=== PATIENT | female | born 1985 | race Caucasian/White ===

== ENCOUNTER 2018-02-18 08:53 | Emergency (ER) | payer OTHER ==
[2018-02-18 09:15] VITALS: O2SAT 100
--- NOTE | 2018-02-18 09:39 | ERPHSYRPT ---
- History of Present Illness Time Seen by Provider: 02/18/18 09:27 Source: patient Exam Limitations: no limitations Patient Subjective Stated Complaint: pain across lower back that shoots up the middle of the spine Triage Nursing Assessment: Pt c/o of pain in bilateral lower back/hips that radiates up her spine, rates pain /, reports that this happens occasionally since her kids have been born for the past couple of years, pain with palpation up the spine, vitals wnl, denies numbness or tingling, doesn't appear to be in any distress Physician History: 32-year-old white female arrives with complaint of intermittent sharp shooting pains in her back radiating up her spine which began low in the lumbar region symptoms for 2 years after receiving an epidural while having a . She states that she's had the same pain for the past 2 days. She has not had any other symptoms. Denies any new injury. Past medical history includes anemia. Past surgical history includes . Timing/Duration: other (chronically recurring pain2 years, occurring this time for 2-3 days) Modifying Factors: Improves With: nothing Associated Symptoms: No nausea, No vomiting, No abdominal pain, No shortness of breath, No heartburn, No diaphoresis, No cough, No chest pain, No fever, No headaches, No loss of appetite, No malaise, No rash, No syncope, No seizure, No weakness Allergies/Adverse Reactions: ibuprofen Allergy (Verified 02/18/18 09:15) Home Medications: Ferrous Sulfate [Iron] 325 mg PO DAILY 02/18/18 [History] - Review of Systems Constitutional: No Fever, No Chills Eyes: No Symptoms Ears, Nose, & Throat: No Symptoms Respiratory: No Cough, No Dyspnea Cardiac: No Chest Pain, No Edema, No Syncope Abdominal/Gastrointestinal: No Abdominal Pain, No Nausea, No Vomiting, No Diarrhea Genitourinary Symptoms: No Dysuria Musculoskeletal: Back Pain (Pain and back pain, beginning in lumbar region and hips, radiating up back to head sharp chronic intermittent occurring past 2-3 days) Skin: No Rash Neurological: No Dizziness, No Focal Weakness, No Sensory Changes Psychological: No Symptoms Endocrine: No Symptoms All Other Systems: Reviewed and Negative - Past Medical History Pertinent Past Medical History: No Other Medical History: anemia - Past Surgical History Past Surgical History: Yes Female Surgical History: Section - Social History Smoking Status: Current every day smoker How long have you smoked: 4 months Exposure to second hand smoke: Yes Drug Use: none Patient Lives Alone: No - Female History Hx Now: No (unsure) - Nursing Vital Signs Nursing Vital Signs: Initial Vital Signs Temperature 97.4 F 02/18/18 08:58 Pulse Rate 58 L 02/18/18 08:58 Blood Pressure 139/47 02/18/18 08:58 O2 Sat by Pulse Oximetry 100 02/18/18 08:58 Pain Scale Pain Intensity 7 - Physical Exam General Appearance: no apparent distress, alert Eye Exam: PERRL/EOMI, eyes nml inspection Ears, Nose, Throat Exam: normal ENT inspection, TMs normal, pharynx normal, moist mucous membranes Neck Exam: normal inspection, non-tender, supple, full range of motion Respiratory Exam: normal breath sounds, lungs clear, No respiratory distress Cardiovascular Exam: regular rate/rhythm, normal heart sounds, normal peripheral pulses, capillary refill <2 sec Gastrointestinal/Abdomen Exam: soft, normal bowel sounds, No tenderness, No mass Back Exam: normal inspection, normal range of motion, No CVA tenderness, No vertebral tenderness Extremity Exam: normal inspection, normal range of motion, pelvis stable Neurologic Exam: alert, oriented x 3, cooperative, armature tester II-XII nml as tested, normal mood/affect, nml cerebellar function, nml station & gait, sensation nml, No motor deficits Skin Exam: normal color, warm, dry, No rash SpO2 Interpretation: normal (100%) SpO2: 100 Oxygen Delivery: Room Air - Course Nursing assessment & vital signs reviewed: Yes Ordered Tests: Active Orders 24 hr Category Date Time Status HCG,QUALITATIVE URINE Stat Lab 02/18/18 10:05 Completed UA W/RFX UR CULTURE Stat Lab 02/18/18 10:05 Completed Lab/Rad Data: Laboratory Results 02/18/18 02/18/18 Range/Units 10:05 10:05 Urine Color YELLOW (YELLOW) Urine Appearance CLEAR (CLEAR) Urine pH 5.0 (5-6) Ur Specific [place] 1.032 (1.005-1.025) Urine Protein 30 (Negative) Urine Ketones NEGATIVE (NEGATIVE) Urine Blood NEGATIVE (0-5) Ian/ul Urine Nitrite NEGATIVE (NEGATIVE) Urine Bilirubin NEGATIVE (NEGATIVE) Urine Urobilinogen 2 (0-1) mg/dL Ur Leukocyte Esterase NEGATIVE (NEGATIVE) Urine WBC (Auto) 3-5 (0-5) /HPF Urine RBC (Auto) NONE (0-2) /HPF U Epithel Cells (Auto) RARE (FEW) /HPF Urine Bacteria (Auto) NONE (NEGATIVE) /HPF Urine Mucus (Auto) MANY (NEGATIVE) /HPF Urine Culture Reflexed NO (NO) Urine Glucose NEGATIVE (NEGATIVE) mg/dL Urine HCG, Qual NEGATIVE (Negative) - Progress Progress: improved Progress Note: 02/18/18 09:37 32-year-old white female with history of anemia. Arrives with complaint of sharp shooting pains which began in lumbar region and radiated up her spine to her head off-and-on for 2 years after receiving an epidural. Patient states that she's been having similar pains for the Past 2-3 days. On physical examination patient does not appear to be in acute distress she is sitting up on the cot she is able to keep her hips flexed to 90 and extend her knees without any problems she has no point tenderness on my examination. Sensation intact to all extremities full range of motion to all extremities. Will go ahead and check urine hCG and urine test. We will consider placing patient on Flexeril. Patient states she is allergic to ibuprofen so will consider have a patient taking Tylenol for her pain. This appears to be a chronic pain with no new injury. Patient does state that her family physician is Dr. Espinoza but she has not seen him for some time. 02/18/18 10:41 Patient's urinalysis essentially normal hCG is negative. Patient's sleeping when I reenter the room arouses easily. Will place patient on Flexeril 10 mg orally 3 times a day for 5 days. Patient to take Tylenol as well for pain. Patient will need follow-up with her family doctor if pain no better in a couple of days. This does appear to be a chronic pain with exacerbation. - Departure Time of Disposition: 10:42 Departure Disposition: Home Clinical Impression: Back pain Qualifiers: Back pain location: low back pain Chronicity: unspecified Back pain laterality : midline Sciatica presence: without sciatica Qualified Code(s): M54.5 - Low back pain Condition: Fair Critical Care Time: No Referrals: SAL ESPINOZA MD [Primary Care Provider] - Instructions: Low Back Pain (DC) Additional Instructions: Return home. Flexeril as prescribed. Tylenol every 4 hours as needed for pain as well. Follow-up with your family doctor. Return for acute distress or for severe symptoms. Prescriptions: Cyclobenzaprine HCl [Flexeril] 10 mg PO TID #15 tablet
[2018-02-18 10:37] LABS: Bilirubin NEGATIVE (NEGATIVE); Blood NEGATIVE Ery/ul (0-5); Glucose NEGATIVE (NEGATIVE); Ketones NEGATIVE (NEGATIVE); Leukocyte Esterase NEGATIVE (NEGATIVE); Nitrite NEGATIVE (NEGATIVE); Protein,Urine Dip 30 (Negative); Specific Gravity 1.032 (1.005-1.025); Urobilinogen 2 mg/dL (0-1)
[2018-02-18 10:38] LABS: Appearance CLEAR (CLEAR)
[2018-02-18 11:20] VITALS: BP 114/69; PULSE 51
== END 2018-02-18 11:19 | disposition home or self-care (01) ==
LOC: ED 08:53
DX: M54.5 Low back pain (principal)
CPT/HCPCS: 81001; 84703; 99283

== ENCOUNTER 2023-12-24 18:44 | Observation (INO) | payer OTHER ==
--- NOTE | 2023-12-24 19:25 | ERPHSYRPT ---
- History of Present Illness Time Seen by Provider: 12/24/23 19:10 Source: patient, family Exam Limitations: no limitations Patient Subjective Stated Complaint: Abnormal labs from today. Hgb critical low around 5. Triage Nursing Assessment: Patient ambulated back to ER; refused a W/C. No SOB. She is pale. ARTEMIO THOMAS. Physician History: This is an obese 38-year-old white female patient of Dr. Sheffield who arrives by private vehicle escorted by her . Patient was told to return to the emergency department for further evaluation and management of a critical hemoglobin level of 5.7 that was drawn approximately 4 hours prior to arrival. Patient states that she does not have insurance and therefore has not been foll owed by outpatient primary care provider. Today, she was seen by Dr. Garcia for Dr. Sheffield because of worsening shortness of breath and weakness over the last few days. She has not noticed any bright red blood per rectum, dark tarry stools, hematuria, hematemesis or vaginal bleeding. Patient states that she has a history of chronic anemia but does not see curam developer for it. Patient states that she was transfused with packed red blood cells approximately 2 years ago. Patient's last menstrual period was 2 weeks ago and it was normal for her. Patient is a daily smoker of cigarettes. She does state that she had a couple episodes of substernal central nonradiating chest pain in the last few days as well. Timing/Duration: today, worse Severity: moderate Associated Symptoms: shortness of breath, weakness Allergies/Adverse Reactions: ibuprofen Allergy (Verified 12/24/23 18:57) Latex, Natural Rubber Allergy (Verified 12/24/23 18:57) Home Medications: No Reportable Medications [No Reported Medications] 12/24/23 [History] Hx Tetanus, Diphtheria Vaccination/Date Given: Yes Immunizations Up to Date: Yes Travel Risk - International Travel Have you traveled outside of the country in past 3 weeks: No - Emerging Infectious Disease Are you exhibiting symptoms associated with any current EIDs: No - Review of Systems Constitutional: Weakness Eyes: No Symptoms Ears, Nose, & Throat: No Symptoms Respiratory: Dyspnea Cardiac: Chest Pain (Intermittent in the last few days, none now) Abdominal/Gastrointestinal: No Symptoms Genitourinary Symptoms: No Symptoms Musculoskeletal: No Symptoms Skin: No Symptoms Neurological: No Symptoms Psychological: No Symptoms Endocrine: No Symptoms Hematologic/Lymphatic: No Symptoms Immunological/Allergic: No Symptoms All Other Systems: Reviewed and Negative - Past Medical History Pertinent Past Medical History: Yes Other Medical History: anemia - Past Surgical History Past Surgical History: Yes Female Surgical History: Section - Female History Hx Last Menstrual Period: 2 weeks ago Hx Now: No - Social History Smoking Status: Current every day smoker How long have you smoked: 4 months Exposure to second hand smoke: Yes Drug Use: none Patient Lives Alone: No - Social Determinants of Health Will the patient participate in the screening: Declined to provide - Nursing Vital Signs Nursing Vital Signs: Initial Vital Signs Temperature 98.4 F 12/24/23 18:50 Pulse Rate 74 12/24/23 18:50 Respiratory Rate 15 12/24/23 18:50 Blood Pressure 107/77 12/24/23 18:50 O2 Sat by Pulse Oximetry 100 12/24/23 18:50 Pain Scale Pain Intensity 0 - Physical Exam General Appearance: mild distress, alert, anxiety, obese Eye Exam: pale conjunctivae Ears, Nose, Throat Exam: dry mucous membranes Neck Exam: normal inspection, non-tender, supple, full range of motion Respiratory Exam: normal breath sounds, lungs clear, airway intact, No chest tenderness, No respiratory distress Cardiovascular Exam: regular rate/rhythm, normal heart sounds, normal peripheral pulses Gastrointestinal/Abdomen Exam: soft, normal bowel sounds, No tenderness Pelvic Exam: not done Rectal Exam: not done Back Exam: normal inspection, normal range of motion, No CVA tenderness, No vertebral tenderness Extremity Exam: normal inspection, normal range of motion, pelvis stable Neurologic Exam: alert, oriented x 3, cooperative, care services manager II-XII nml as tested, nml cerebellar function, nml station & gait, sensation nml Skin Exam: pale Lymphatic Exam: No adenopathy SpO2 Interpretation: normal SpO2: 100 O2 Delivery: Room Air - Course Nursing assessment & vital signs reviewed: Yes EKG Interpreted by Me: RATE, Sinus Rhythm, NORMAL AXIS, NORMAL INTERVALS, NORMAL QRS, Other (Computer review doses. Ventricular premature complexes. No acute ischemic changes on today's twelve-lead EKG. QTc is 436) Ordered Tests: Active Orders 24 hr Category Date Time Status Gas Mask Inspector STAT Care 12/24/23 19:41 Active EKG-ER Only STAT Care 12/24/23 19:40 Active IV Insertion STAT Care 12/24/23 19:40 Active Pulse Oximetry (ED) STAT Care 12/24/23 19:40 Active CHEST 1 VIEW (PORTABLE) Stat Exams 12/24/23 19:41 Taken CBC W DIFF Stat Lab 12/24/23 20:05 Completed CMP Stat Lab 12/24/23 20:05 Completed MAGNESIUM Stat Lab 12/24/23 20:05 Completed NT PRO BNPII Stat Lab 12/24/23 20:05 Completed Occult Blood-Fecal Screen (Diagnostic) [OB-FECAL SCREEN Lab 12/24/23 Ordered ] Stat PROTIME WITH INR Stat Lab 12/24/23 20:05 Completed TROPONIN Q4H Lab 12/24/23 20:05 Completed TROPONIN Q4H Lab 12/24/23 23:45 Ordered TROPONIN Q4H Lab 12/25/23 03:45 Ordered Transfer Order Routine Transfer 12/24/23 Ordered Lab/Rad Data: Laboratory Result Diagrams 12/24/23 20:05 12/24/23 20:05 Laboratory Results 12/24/23 12/24/23 12/24/23 Range/Units 20:05 20:05 20:05 WBC (3.98-10.04) x10^3/uL RBC (3.93-5.22) x10^6/uL Hgb (11.2-15.7) g/dL Hct (34.1-44.9) % MCV (79.4-94.8) fL MCH (25.6-32.2) pg MCHC (32.2-35.5) g/dL RDW (11.7-14.4) % Plt Count (182-369) x10^3/uL Gran % (34.0-71.1) % Immature Gran % (Auto) (0.001-0.429) % Nucleat RBC Rel Count (0.00-0.2) % Eos # (Auto) (0.04-0.36) x10^3/uL Immature Gran # (Auto) (0.001-0.031) x10^3u/L Absolute Lymphs (auto) (1.18-3.74) x10^3/uL Absolute Monos (auto) (0.24-0.86) x10^3/uL Absolute Nucleated RBC (0.00-0.012) x10^3u/L Lymphocytes % (19.3-51.7) % Monocytes % (4.7-12.5) % Eosinophils % (0.7-5.8) % Basophils % (0.1-1.2) % Absolute Granulocytes (1.56-6.13) x10^3/uL Basophils # (0.01-0.08) x10^3/uL PT 10.0 (9.4-12.5) SECONDS INR 0.91 (0.8-3.0) Sodium 140 (135-145) mmol/L Potassium 3.7 (3.5-5.1) mmol/L Chloride 104 (98-107) mmol/L Carbon Dioxide 27 (22-30) mmol/L Anion Gap 12.9 (5-15) MEQ/L BUN 14 (7-17) mg/dL Creatinine 0.67 (0.52-1.04) mg/dL Estimated GFR 113.2 ML/MIN Glucose 125 H (74-106) mg/dL Calcium 8.8 (8.4-10.2) mg/dL Magnesium 2.0 (1.6-2.3) mg/dL Total Bilirubin 0.30 (0.2-1.3) mg/dL AST 24 (14-36) U/L ALT 22 (0-35) U/L Alkaline Phosphatase 74 (38-126) U/L Troponin I < 0.012 (0.000-0.033) ng/mL NT-Pro-B Natriuret Pep 81.3 (<300) pg/mL Serum Total Protein 7.1 (6.3-8.2) g/dL Albumin 4.0 (3.5-5.0) g/dL Slides for Path Review 12/24/23 Range/Units 20:05 WBC 6.9 (3.98-10.04) x10^3/uL RBC 3.33 L (3.93-5.22) x10^6/uL Hgb 5.0 L* (11.2-15.7) g/dL Hct 19.2 L (34.1-44.9) % MCV 57.7 L (79.4-94.8) fL MCH 15.0 L (25.6-32.2) pg MCHC 26.0 L (32.2-35.5) g/dL RDW 21.0 H (11.7-14.4) % Plt Count 177 L (182-369) x10^3/uL Gran % 72.3 H (34.0-71.1) % Immature Gran % (Auto) 0.4 (0.001-0.429) % Nucleat RBC Rel Count 0.0 (0.00-0.2) % Eos # (Auto) 0.16 (0.04-0.36) x10^3/uL Immature Gran # (Auto) 0.03 (0.001-0.031) x10^3u/L Absolute Lymphs (auto) 1.25 (1.18-3.74) x10^3/uL Absolute Monos (auto) 0.45 (0.24-0.86) x10^3/uL Absolute Nucleated RBC 0.00 (0.00-0.012) x10^3u/L Lymphocytes % 18.1 L (19.3-51.7) % Monocytes % 6.5 (4.7-12.5) % Eosinophils % 2.3 (0.7-5.8) % Basophils % 0.4 (0.1-1.2) % Absolute Granulocytes 4.98 (1.56-6.13) x10^3/uL Basophils # 0.03 (0.01-0.08) x10^3/uL PT (9.4-12.5) SECONDS INR (0.8-3.0) Sodium (135-145) mmol/L Potassium (3.5-5.1) mmol/L Chloride (98-107) mmol/L Carbon Dioxide (22-30) mmol/L Anion Gap (5-15) MEQ/L BUN (7-17) mg/dL Creatinine (0.52-1.04) mg/dL Estimated GFR ML/MIN Glucose (74-106) mg/dL Calcium (8.4-10.2) mg/dL Magnesium (1.6-2.3) mg/dL Total Bilirubin (0.2-1.3) mg/dL AST (14-36) U/L ALT (0-35) U/L Alkaline Phosphatase (38-126) U/L Troponin I (0.000-0.033) ng/mL NT-Pro-B Natriuret Pep (<300) pg/mL Serum Total Protein (6.3-8.2) g/dL Albumin (3.5-5.0) g/dL Slides for Path Review YES - Progress Progress: unchanged Progress Note: 12/24/23 20:42 My medical decision making and the assignment of high complexity is based on review of the patient's past medical history, review the patient's medication list, review of the patient's drug allergy list, history present illness and physical findings on examination. I also reviewed labs that were drawn approximately 4 hours prior to the patient arriving to our facility. The workup today includes placement of an intravenous line, CBC, CMP, PT/INR, occult fecal stool test, CT scan of the abdomen pelvis without contrast, type and cross for 3 units with stat transfusion. Patient will be placed in observation in the hospital if hospitalist agrees. Differential diagnosis includes but is not limited to symptomatic anemia, acute versus chronic blood loss, chronic hematologic abnormality 12/24/23 21:24 I interpreted the patient's laboratory data results. Patient does have significant anemia with symptoms. Her repeat hemoglobin is 5 and her hematocrit was 19. I spoke with Dr. Hodges, our telehospitalist on-call at this time. I reviewed the patient history, presenting complaint, physical findings on examination and results of our workup. He agrees to place this patient in observation. Discussed with : Other (Dr. Hodges) Counseled pt/family regarding: lab results, diagnosis, need for follow-up, rad results Medical Desision Making - Independent Historian Additional History obtained from: Spouse - Diagnostic Testing Radiological Interpretation: Reviewed by me, Teleradiologist Report - Risk of complications The pt has a high risk of morbidity or mortality based on: Decision regarding hospitilization or escalation of hosp level of care - Departure Departure Disposition: Observation Clinical Impression: Symptomatic anemia Condition: Stable Critical Care Time: Yes Critical Care Time(excluding separately billable procedures): Critical 30-74 mins (45 minutes) Referrals: SAL SHEFFIELD MD [Primary Care Provider] - Follow up/PCP as directed
[2023-12-24 20:17] LABS: Absolute Neutrophil Ct (ANC) 4.98 x10^3/uL (1.56-6.13); BASOPHIL % 0.4 % (0.1-1.2); Basophil (Absolute #) 0.03 x10^3/uL (0.01-0.08); Eosinophil % 2.3 % (0.7-5.8); Eosinophil (Absolute #) 0.16 x10^3/uL (0.04-0.36); Hematocrit 19.2 % (34.1-44.9); IMMATURE GRAN # 0.03 x10^3u/L (0.001-0.031); IMMATURE GRAN % 0.4 % (0.001-0.429); Lymphocyte (Absolute #) 1.25 x10^3/uL (1.18-3.74); Lymphocytes % 18.1 % (19.3-51.7); Mean Cell Volume 57.7 fL (79.4-94.8); Monocyte (Absolute #) 0.45 x10^3/uL (0.24-0.86); Monocytes % 6.5 % (4.7-12.5); Neutrophil % 72.3 % (34.0-71.1); Platelet Count 177 x10^3/uL (182-369); Red Blood Count 3.33 x10^6/uL (3.93-5.22); White Blood Count 6.9 x10^3/uL (3.98-10.04)
[2023-12-24 20:32] LABS: ANION GAP 12.9 MEQ/L (5-15); BILIRUBIN,TOTAL 0.3 mg/dL (0.2-1.3); Calcium 8.8 mg/dL (8.4-10.2); Creatinine 1 0.67 mg/dL (0.52-1.04); EST GLOMERULAR FILTRATION RATE 113.2 ML/MIN; INR 0.91 (0.8-3.0); Potassium 3.7 mmol/L (3.5-5.1); Total Protein 7.1 g/dL (6.3-8.2)
[2023-12-24 20:43] LABS: NT PRO BNPII 81.3 pg/mL (<300); TROPONIN < 0.012 ng/mL (0.000-0.033)
[2023-12-24 21:11] LABS: Slide Review 1 YES
[2023-12-24 21:33] LABS: ABO TYPING A; Antibody Screen NEGATIVE (NEGATIVE); RH TYPING POSITIVE
[2023-12-24 21:35] LABS: CROSS MATCH (PRBC) COMPATIBLE (COMPATIBLE)
[2023-12-24 21:36] LABS: CROSS MATCH (PRBC) COMPATIBLE (COMPATIBLE)
[2023-12-24] MEDS ORDERED: Zofran 4 MG/2 ML VIAL IV PRN (21:42)
[2023-12-24] MEDS ORDERED: TYLENOL 325 MG PO PRN (21:42)
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
[2023-12-24] MEDS: Sodium Chloride 0.9% 1000 ML 1,000 ML IV SCH (23:07)
[2023-12-24 23:23] LABS: CROSS MATCH (PRBC) COMPATIBLE (COMPATIBLE)
[2023-12-24 23:24] LABS: Iron 27 ug/dL (37-170); Iron Saturation 6 % (20-39); TIBC 451 ug/dL (265-462)
[2023-12-24 23:55] LABS: Ferritin 3.38 ng/mL (6.24-137)
--- NOTE | 2023-12-25 05:15 | PCM.NOTE ---
Date and Time: 12/25/23 0508 Subjective Assessment: HPI: Ms. Nice is a 38 year old female, patient of Dr. Sheffield with a pmhx of tobacco abuse and anemia admitted 12/25/23 for further evaluation and management of a critical hemoglobin level of 5.7 that was drawn as an OP and later confirmed hgb of 5.0 in ED. Patient had been experiencing symptoms of weakness and shortness of breath for several days prompting her to her PCP. She denies any bright red blood per rectum, dark tarry stools, hematuria, hematemesis or vaginal bleeding. She does has a history of chronic anemia and has been told it is secondary to heavy menses, but has never been evaluated by a mold carpenter for it. Patient states that she was transfused with packed red blood cells approximately 2 years ago. Patient's last menstrual period was 2 weeks ago and it was heavy. EKG NS no acute ischemic changes. Objective Data Vital Signs: Vital Signs - 24 hr Temp Pulse Resp BP BP Pulse Ox 12/25/23 04:00 97.2 F 58 L 23 123/60 94 L 12/24/23 23:56 72 18 95 12/24/23 22:00 100 12/24/23 21:50 97.7 F 72 18 129/80 100 12/24/23 21:30 100 12/24/23 21:00 74 18 127/68 99 12/24/23 20:31 77 108/48 95 12/24/23 20:01 71 24 107/63 98 12/24/23 19:40 100 12/24/23 19:30 77 16 136/67 12/24/23 19:00 90 20 107/77 98 12/24/23 18:50 98.4 F 74 15 107/77 100 Pain Assessment - Last Documented Pain Intensity 0 Intake and Output: Intake & Output 12/22/23 12/23/23 12/24/23 12/25/23 11:59 11:59 11:59 11:59 Weight 118.5 kg Lab Results: Lab Results-Last 24 Hours 12/24/23 12/24/23 12/24/23 Range/Units 20:05 20:05 20:05 WBC 6.9 (3.98-10.04) x10^3/uL RBC 3.33 L (3.93-5.22) x10^6/uL Hgb 5.0 L* (11.2-15.7) g/dL Hct 19.2 L (34.1-44.9) % MCV 57.7 L (79.4-94.8) fL MCH 15.0 L (25.6-32.2) pg MCHC 26.0 L (32.2-35.5) g/dL RDW 21.0 H (11.7-14.4) % Plt Count 177 L (182-369) x10^3/uL Gran % 72.3 H (34.0-71.1) % Immature Gran % (Auto) 0.4 (0.001-0.429) % Nucleat RBC Rel Count 0.0 (0.00-0.2) % Eos # (Auto) 0.16 (0.04-0.36) x10^3/uL Immature Gran # (Auto) 0.03 (0.001-0.031) x10^3u/L Absolute Lymphs (auto) 1.25 (1.18-3.74) x10^3/uL Absolute Monos (auto) 0.45 (0.24-0.86) x10^3/uL Absolute Nucleated RBC 0.00 (0.00-0.012) x10^3u/L Lymphocytes % 18.1 L (19.3-51.7) % Monocytes % 6.5 (4.7-12.5) % Eosinophils % 2.3 (0.7-5.8) % Basophils % 0.4 (0.1-1.2) % Absolute Granulocytes 4.98 (1.56-6.13) x10^3/uL Basophils # 0.03 (0.01-0.08) x10^3/uL PT 10.0 (9.4-12.5) SECONDS INR 0.91 (0.8-3.0) Sodium 140 (135-145) mmol/L Potassium 3.7 (3.5-5.1) mmol/L Chloride 104 (98-107) mmol/L Carbon Dioxide 27 (22-30) mmol/L Anion Gap 12.9 (5-15) MEQ/L BUN 14 (7-17) mg/dL Creatinine 0.67 (0.52-1.04) mg/dL Estimated GFR 113.2 ML/MIN Glucose 125 H (74-106) mg/dL Calcium 8.8 (8.4-10.2) mg/dL Magnesium 2.0 (1.6-2.3) mg/dL Iron (37-170) ug/dL TIBC (265-462) ug/dL Iron Saturation (20-39) % Ferritin (6.24-137) ng/mL Total Bilirubin 0.30 (0.2-1.3) mg/dL AST 24 (14-36) U/L ALT 22 (0-35) U/L Alkaline Phosphatase 74 (38-126) U/L Lactate Dehydrogenase (120-246) U/L Troponin I (0.000-0.033) ng/mL NT-Pro-B Natriuret Pep (<300) pg/mL Serum Total Protein 7.1 (6.3-8.2) g/dL Albumin 4.0 (3.5-5.0) g/dL Folic Acid (2.76 - >20) ng/mL Slides for Path Review YES ABO Group Rh Factor Antibody Screen (NEGATIVE) Crossmatch (COMPATIBLE) 12/24/23 12/24/23 12/24/23 Range/Units 20:05 20:05 20:05 WBC (3.98-10.04) x10^3/uL RBC (3.93-5.22) x10^6/uL Hgb (11.2-15.7) g/dL Hct (34.1-44.9) % MCV (79.4-94.8) fL MCH (25.6-32.2) pg MCHC (32.2-35.5) g/dL RDW (11.7-14.4) % Plt Count (182-369) x10^3/uL Gran % (34.0-71.1) % Immature Gran % (Auto) (0.001-0.429) % Nucleat RBC Rel Count (0.00-0.2) % Eos # (Auto) (0.04-0.36) x10^3/uL Immature Gran # (Auto) (0.001-0.031) x10^3u/L Absolute Lymphs (auto) (1.18-3.74) x10^3/uL Absolute Monos (auto) (0.24-0.86) x10^3/uL Absolute Nucleated RBC (0.00-0.012) x10^3u/L Lymphocytes % (19.3-51.7) % Monocytes % (4.7-12.5) % Eosinophils % (0.7-5.8) % Basophils % (0.1-1.2) % Absolute Granulocytes (1.56-6.13) x10^3/uL Basophils # (0.01-0.08) x10^3/uL PT (9.4-12.5) SECONDS INR (0.8-3.0) Sodium (135-145) mmol/L Potassium (3.5-5.1) mmol/L Chloride (98-107) mmol/L Carbon Dioxide (22-30) mmol/L Anion Gap (5-15) MEQ/L BUN (7-17) mg/dL Creatinine (0.52-1.04) mg/dL Estimated GFR ML/MIN Glucose (74-106) mg/dL Calcium (8.4-10.2) mg/dL Magnesium (1.6-2.3) mg/dL Iron (37-170) ug/dL TIBC (265-462) ug/dL Iron Saturation (20-39) % Ferritin (6.24-137) ng/mL Total Bilirubin (0.2-1.3) mg/dL AST (14-36) U/L ALT (0-35) U/L Alkaline Phosphatase (38-126) U/L Lactate Dehydrogenase (120-246) U/L Troponin I < 0.012 (0.000-0.033) ng/mL NT-Pro-B Natriuret Pep 81.3 (<300) pg/mL Serum Total Protein (6.3-8.2) g/dL Albumin (3.5-5.0) g/dL Folic Acid (2.76 - >20) ng/mL Slides for Path Review ABO Group A Rh Factor POSITIVE Antibody Screen NEGATIVE (NEGATIVE) Crossmatch COMPATIBLE COMPATIBLE (COMPATIBLE) 12/24/23 12/24/23 12/24/23 Range/Units 20:05 20:05 20:05 WBC (3.98-10.04) x10^3/uL RBC (3.93-5.22) x10^6/uL Hgb (11.2-15.7) g/dL Hct (34.1-44.9) % MCV (79.4-94.8) fL MCH (25.6-32.2) pg MCHC (32.2-35.5) g/dL RDW (11.7-14.4) % Plt Count (182-369) x10^3/uL Gran % (34.0-71.1) % Immature Gran % (Auto) (0.001-0.429) % Nucleat RBC Rel Count (0.00-0.2) % Eos # (Auto) (0.04-0.36) x10^3/uL Immature Gran # (Auto) (0.001-0.031) x10^3u/L Absolute Lymphs (auto) (1.18-3.74) x10^3/uL Absolute Monos (auto) (0.24-0.86) x10^3/uL Absolute Nucleated RBC (0.00-0.012) x10^3u/L Lymphocytes % (19.3-51.7) % Monocytes % (4.7-12.5) % Eosinophils % (0.7-5.8) % Basophils % (0.1-1.2) % Absolute Granulocytes (1.56-6.13) x10^3/uL Basophils # (0.01-0.08) x10^3/uL PT (9.4-12.5) SECONDS INR (0.8-3.0) Sodium (135-145) mmol/L Potassium (3.5-5.1) mmol/L Chloride (98-107) mmol/L Carbon Dioxide (22-30) mmol/L Anion Gap (5-15) MEQ/L BUN (7-17) mg/dL Creatinine (0.52-1.04) mg/dL Estimated GFR ML/MIN Glucose (74-106) mg/dL Calcium (8.4-10.2) mg/dL Magnesium (1.6-2.3) mg/dL Iron (37-170) ug/dL TIBC (265-462) ug/dL Iron Saturation (20-39) % Ferritin 3.38 L (6.24-137) ng/mL Total Bilirubin (0.2-1.3) mg/dL AST (14-36) U/L ALT (0-35) U/L Alkaline Phosphatase (38-126) U/L Lactate Dehydrogenase 134 (120-246) U/L Troponin I (0.000-0.033) ng/mL NT-Pro-B Natriuret Pep (<300) pg/mL Serum Total Protein (6.3-8.2) g/dL Albumin (3.5-5.0) g/dL Folic Acid 5.21 (2.76 - >20) ng/mL Slides for Path Review ABO Group Rh Factor Antibody Screen (NEGATIVE) Crossmatch COMPATIBLE (COMPATIBLE) 12/24/23 Range/Units 20:05 WBC (3.98-10.04) x10^3/uL RBC (3.93-5.22) x10^6/uL Hgb (11.2-15.7) g/dL Hct (34.1-44.9) % MCV (79.4-94.8) fL MCH (25.6-32.2) pg MCHC (32.2-35.5) g/dL RDW (11.7-14.4) % Plt Count (182-369) x10^3/uL Gran % (34.0-71.1) % Immature Gran % (Auto) (0.001-0.429) % Nucleat RBC Rel Count (0.00-0.2) % Eos # (Auto) (0.04-0.36) x10^3/uL Immature Gran # (Auto) (0.001-0.031) x10^3u/L Absolute Lymphs (auto) (1.18-3.74) x10^3/uL Absolute Monos (auto) (0.24-0.86) x10^3/uL Absolute Nucleated RBC (0.00-0.012) x10^3u/L Lymphocytes % (19.3-51.7) % Monocytes % (4.7-12.5) % Eosinophils % (0.7-5.8) % Basophils % (0.1-1.2) % Absolute Granulocytes (1.56-6.13) x10^3/uL Basophils # (0.01-0.08) x10^3/uL PT (9.4-12.5) SECONDS INR (0.8-3.0) Sodium (135-145) mmol/L Potassium (3.5-5.1) mmol/L Chloride (98-107) mmol/L Carbon Dioxide (22-30) mmol/L Anion Gap (5-15) MEQ/L BUN (7-17) mg/dL Creatinine (0.52-1.04) mg/dL Estimated GFR ML/MIN Glucose (74-106) mg/dL Calcium (8.4-10.2) mg/dL Magnesium (1.6-2.3) mg/dL Iron 27 L (37-170) ug/dL TIBC 451 (265-462) ug/dL Iron Saturation 6 L (20-39) % Ferritin (6.24-137) ng/mL Total Bilirubin (0.2-1.3) mg/dL AST (14-36) U/L ALT (0-35) U/L Alkaline Phosphatase (38-126) U/L Lactate Dehydrogenase (120-246) U/L Troponin I (0.000-0.033) ng/mL NT-Pro-B Natriuret Pep (<300) pg/mL Serum Total Protein (6.3-8.2) g/dL Albumin (3.5-5.0) g/dL Folic Acid (2.76 - >20) ng/mL Slides for Path Review ABO Group Rh Factor Antibody Screen (NEGATIVE) Crossmatch (COMPATIBLE) Radiology Exams: Radiology Procedures Category Date Time Status CHEST 1 VIEW (PORTABLE) Stat Exams 12/24/23 19:41 Taken Assessment/Plan (1) Symptomatic anemia Current Visit: Yes Status: Acute Assessment & Plan: -Iron saturation at 6% - will start ferrous sulfate/venofer -Transfuse with LPRBC to mainatain hgb > 7 -stool for occult blood pending -refer to hematology -consider surgery consult -CT abdomen/pelvis - -Hold anticoag/NSAIDS/ASA -Protonix Code(s): D64.9 - ANEMIA, UNSPECIFIED (2) Thrombocytopenia Current Visit: Yes Status: Acute Assessment & Plan: -mild -monitor, replace if less than 10 (3) Smoker Current Visit: Yes Status: Acute Assessment & Plan: -nicotine patch, advise cessation Code(s): F17.200 - NICOTINE DEPENDENCE, UNSPECIFIED, UNCOMPLICATED
[2023-12-25 06:48] LABS: Absolute Neutrophil Ct (ANC) 3.97 x10^3/uL (1.56-6.13); BASOPHIL % 0.7 % (0.1-1.2); Basophil (Absolute #) 0.04 x10^3/uL (0.01-0.08); Eosinophil % 3.5 % (0.7-5.8); Eosinophil (Absolute #) 0.21 x10^3/uL (0.04-0.36); Hematocrit 23.9 % (34.1-44.9); IMMATURE GRAN # 0.02 x10^3u/L (0.001-0.031); IMMATURE GRAN % 0.3 % (0.001-0.429); Lymphocyte (Absolute #) 1.19 x10^3/uL (1.18-3.74); Mean Cell Volume 63.4 fL (79.4-94.8); Mean Corpuscular Hemoglobin 17.5 pg (25.6-32.2); Mean Corpuscular Hgb Concent. 27.6 g/dL (32.2-35.5); Monocyte (Absolute #) 0.52 x10^3/uL (0.24-0.86); Monocytes % 8.7 % (4.7-12.5); Neutrophil % 66.8 % (34.0-71.1); Platelet Count 163 x10^3/uL (182-369); Red Blood Count 3.77 x10^6/uL (3.93-5.22); Red Cell Distribution Width 26.5 % (11.7-14.4)
[2023-12-25 06:57] LABS: Hemoglobin 6.6 g/dL (11.2-15.7)
[2023-12-25 07:03] LABS: ALBUMIN 3.9 g/dL (3.5-5.0); ANION GAP 12.8 MEQ/L (5-15); BILIRUBIN,TOTAL 0.6 mg/dL (0.2-1.3); Calcium 8.7 mg/dL (8.4-10.2); Creatinine 1 0.65 mg/dL (0.52-1.04); EST GLOMERULAR FILTRATION RATE 114.1 ML/MIN; Potassium 4.1 mmol/L (3.5-5.1); Total Protein 6.9 g/dL (6.3-8.2)
[2023-12-25 07:07] VITALS: RESP 16
[2023-12-25 08:40] LABS: Slide Review 1 YES
--- NOTE | 2023-12-25 08:44 | XRAY ---
Indication: Short of breath. Comparison: None Portable chest inflated and clear. Heart borderline enlarged. Bony thorax intact. No acute abnormalities.
[2023-12-25] MEDS ORDERED: Pepcid 20 MG PO SCH (10:00)
--- NOTE | 2023-12-25 10:08 | PCM.DS ---
Discharge Summary Date of Admission: 12/24/23 21:36 Date of Discharge: 12/25/23 Admitting Physician: BRODY MARCELO MD Consults: Consults on Case 12/25/23 07:30 Case Management [facility] Needs Assessment ROUTINE Primary Care Provider: SAL SHEFFIELD AMANDA Allergies Allergies ibuprofen Allergy (Verified 12/24/23 18:57) Latex, Natural Rubber Allergy (Verified 12/24/23 18:57) Hospital Summary - Hospital Course Hospital Course: HPI: Ms. Nice is a 38 year old female, patient of Dr. Sheffield with a pmhx of tobacco abuse and anemia admitted 12/25/23 for further evaluation and management of a critical hemoglobin level of 5.7 that was drawn as an OP and later confirmed hgb of 5.0 in ED. Patient had been experiencing symptoms of weakness and shortness of breath for several days prompting her to her PCP. She denies any bright red blood per rectum, dark tarry stools, hematuria, hematemesis or vaginal bleeding currently. She does has a history of chronic anemia and has been told it is secondary to heavy menses, but has never been evaluated by a livestock farmer for it. Patient states that she was transfused with packed red blood cells approximately 2 years ago. Patient's last menstrual period was 2 weeks ago and it was heavy. She reports she is being evaluated by [facility] for a partial hysterectomy. EKG NS no acute ischemic changes. Patient has received 3 units of LPRBC. She is requesting discharge today. Discussed referral to hematology for evaluation of anemia for which patient is agreeable. Her iron saturation is at 6%. Will start her on ferrous sulfate - patient unable to tolerate pill form - will send in liquid. Patient states she is no longer experiencing sob or weakness. Stable for discharge pending 1 hr CBC s/p transfusion. Patient advised to follow up with pcp this week for repeat CBC. Discharge Note New Diagnosis: Symptomatic anemia New Medications: ferrous sulfate Follow Up: pcp/cardroom drawing runner/ hematology Latest Assessment & Plan (1) Symptomatic anemia Current Visit: Yes Status: Acute Assessment & Plan: -Iron saturation at 6% - will start ferrous sulfate -Transfuse with LPRBC to mainatain hgb > 7 -stool for occult blood pending -refer to hematology for iron deficiency -Hold anticoag/NSAIDS/ASA -Protonix Code(s): D64.9 - ANEMIA, UNSPECIFIED (2) Thrombocytopenia Current Visit: Yes Status: Acute Assessment & Plan: -mild -monitor, replace if less than 10 (3) Smoker Current Visit: Yes Status: Acute Assessment & Plan: -nicotine patch, advise cessation I spent 35 minutes [id number] with the patient on the day of discharge performing discharge exam, discussing hospital stay and discharge instructions with patient and caregivers, preparation of discharge records, prescriptions & referral forms and addressing any questions/concerns the patient had as documented above. - Vitals & Intake/Output Vital Signs: Vital Signs Temperature 97.9 F 12/25/23 07:06 Pulse Rate 63 12/25/23 07:06 Respiratory Rate 16 12/25/23 07:06 Blood Pressure 131/60 12/25/23 07:06 O2 Sat by Pulse Oximetry 99 12/25/23 07:06 Intake & Output: Intake & Output 12/22/23 12/23/23 12/24/23 12/25/23 11:59 11:59 11:59 11:59 Weight 118.5 kg - Lab Result Diagrams: 12/25/23 11:00 12/25/23 13:36 Lab Results-Last 24 Hrs: Lab Results-Last 24 Hours 12/24/23 12/24/23 12/24/23 Range/Units 20:05 20:05 20:05 WBC 6.9 (3.98-10.04) x10^3/uL RBC 3.33 L (3.93-5.22) x10^6/uL Hgb 5.0 L* (11.2-15.7) g/dL Hct 19.2 L (34.1-44.9) % MCV 57.7 L (79.4-94.8) fL MCH 15.0 L (25.6-32.2) pg MCHC 26.0 L (32.2-35.5) g/dL RDW 21.0 H (11.7-14.4) % Plt Count 177 L (182-369) x10^3/uL Gran % 72.3 H (34.0-71.1) % Immature Gran % (Auto) 0.4 (0.001-0.429) % Nucleat RBC Rel Count 0.0 (0.00-0.2) % Eos # (Auto) 0.16 (0.04-0.36) x10^3/uL Immature Gran # (Auto) 0.03 (0.001-0.031) x10^3u/L Absolute Lymphs (auto) 1.25 (1.18-3.74) x10^3/uL Absolute Monos (auto) 0.45 (0.24-0.86) x10^3/uL Absolute Nucleated RBC 0.00 (0.00-0.012) x10^3u/L Lymphocytes % 18.1 L (19.3-51.7) % Monocytes % 6.5 (4.7-12.5) % Eosinophils % 2.3 (0.7-5.8) % Basophils % 0.4 (0.1-1.2) % Absolute Granulocytes 4.98 (1.56-6.13) x10^3/uL Basophils # 0.03 (0.01-0.08) x10^3/uL PT 10.0 (9.4-12.5) SECONDS INR 0.91 (0.8-3.0) Sodium 140 (135-145) mmol/L Potassium 3.7 (3.5-5.1) mmol/L Chloride 104 (98-107) mmol/L Carbon Dioxide 27 (22-30) mmol/L Anion Gap 12.9 (5-15) MEQ/L BUN 14 (7-17) mg/dL Creatinine 0.67 (0.52-1.04) mg/dL Estimated GFR 113.2 ML/MIN Glucose 125 H (74-106) mg/dL Calcium 8.8 (8.4-10.2) mg/dL Magnesium 2.0 (1.6-2.3) mg/dL Iron (37-170) ug/dL TIBC (265-462) ug/dL Iron Saturation (20-39) % Ferritin (6.24-137) ng/mL Total Bilirubin 0.30 (0.2-1.3) mg/dL AST 24 (14-36) U/L ALT 22 (0-35) U/L Alkaline Phosphatase 74 (38-126) U/L Lactate Dehydrogenase (120-246) U/L Troponin I (0.000-0.033) ng/mL NT-Pro-B Natriuret Pep (<300) pg/mL Serum Total Protein 7.1 (6.3-8.2) g/dL Albumin 4.0 (3.5-5.0) g/dL Folic Acid (2.76 - >20) ng/mL Slides for Path Review YES ABO Group Rh Factor Antibody Screen (NEGATIVE) Crossmatch (COMPATIBLE) 12/24/23 12/24/23 12/24/23 Range/Units 20:05 20:05 20:05 WBC (3.98-10.04) x10^3/uL RBC (3.93-5.22) x10^6/uL Hgb (11.2-15.7) g/dL Hct (34.1-44.9) % MCV (79.4-94.8) fL MCH (25.6-32.2) pg MCHC (32.2-35.5) g/dL RDW (11.7-14.4) % Plt Count (182-369) x10^3/uL Gran % (34.0-71.1) % Immature Gran % (Auto) (0.001-0.429) % Nucleat RBC Rel Count (0.00-0.2) % Eos # (Auto) (0.04-0.36) x10^3/uL Immature Gran # (Auto) (0.001-0.031) x10^3u/L Absolute Lymphs (auto) (1.18-3.74) x10^3/uL Absolute Monos (auto) (0.24-0.86) x10^3/uL Absolute Nucleated RBC (0.00-0.012) x10^3u/L Lymphocytes % (19.3-51.7) % Monocytes % (4.7-12.5) % Eosinophils % (0.7-5.8) % Basophils % (0.1-1.2) % Absolute Granulocytes (1.56-6.13) x10^3/uL Basophils # (0.01-0.08) x10^3/uL PT (9.4-12.5) SECONDS INR (0.8-3.0) Sodium (135-145) mmol/L Potassium (3.5-5.1) mmol/L Chloride (98-107) mmol/L Carbon Dioxide (22-30) mmol/L Anion Gap (5-15) MEQ/L BUN (7-17) mg/dL Creatinine (0.52-1.04) mg/dL Estimated GFR ML/MIN Glucose (74-106) mg/dL Calcium (8.4-10.2) mg/dL Magnesium (1.6-2.3) mg/dL Iron (37-170) ug/dL TIBC (265-462) ug/dL Iron Saturation (20-39) % Ferritin (6.24-137) ng/mL Total Bilirubin (0.2-1.3) mg/dL AST (14-36) U/L ALT (0-35) U/L Alkaline Phosphatase (38-126) U/L Lactate Dehydrogenase (120-246) U/L Troponin I < 0.012 (0.000-0.033) ng/mL NT-Pro-B Natriuret Pep 81.3 (<300) pg/mL Serum Total Protein (6.3-8.2) g/dL Albumin (3.5-5.0) g/dL Folic Acid (2.76 - >20) ng/mL Slides for Path Review ABO Group A Rh Factor POSITIVE Antibody Screen NEGATIVE (NEGATIVE) Crossmatch COMPATIBLE COMPATIBLE (COMPATIBLE) 12/24/23 12/24/23 12/24/23 Range/Units 20:05 20:05 20:05 WBC (3.98-10.04) x10^3/uL RBC (3.93-5.22) x10^6/uL Hgb (11.2-15.7) g/dL Hct (34.1-44.9) % MCV (79.4-94.8) fL MCH (25.6-32.2) pg MCHC (32.2-35.5) g/dL RDW (11.7-14.4) % Plt Count (182-369) x10^3/uL Gran % (34.0-71.1) % Immature Gran % (Auto) (0.001-0.429) % Nucleat RBC Rel Count (0.00-0.2) % Eos # (Auto) (0.04-0.36) x10^3/uL Immature Gran # (Auto) (0.001-0.031) x10^3u/L Absolute Lymphs (auto) (1.18-3.74) x10^3/uL Absolute Monos (auto) (0.24-0.86) x10^3/uL Absolute Nucleated RBC (0.00-0.012) x10^3u/L Lymphocytes % (19.3-51.7) % Monocytes % (4.7-12.5) % Eosinophils % (0.7-5.8) % Basophils % (0.1-1.2) % Absolute Granulocytes (1.56-6.13) x10^3/uL Basophils # (0.01-0.08) x10^3/uL PT (9.4-12.5) SECONDS INR (0.8-3.0) Sodium (135-145) mmol/L Potassium (3.5-5.1) mmol/L Chloride (98-107) mmol/L Carbon Dioxide (22-30) mmol/L Anion Gap (5-15) MEQ/L BUN (7-17) mg/dL Creatinine (0.52-1.04) mg/dL Estimated GFR ML/MIN Glucose (74-106) mg/dL Calcium (8.4-10.2) mg/dL Magnesium (1.6-2.3) mg/dL Iron (37-170) ug/dL TIBC (265-462) ug/dL Iron Saturation (20-39) % Ferritin 3.38 L (6.24-137) ng/mL Total Bilirubin (0.2-1.3) mg/dL AST (14-36) U/L ALT (0-35) U/L Alkaline Phosphatase (38-126) U/L Lactate Dehydrogenase 134 (120-246) U/L Troponin I (0.000-0.033) ng/mL NT-Pro-B Natriuret Pep (<300) pg/mL Serum Total Protein (6.3-8.2) g/dL Albumin (3.5-5.0) g/dL Folic Acid 5.21 (2.76 - >20) ng/mL Slides for Path Review ABO Group Rh Factor Antibody Screen (NEGATIVE) Crossmatch COMPATIBLE (COMPATIBLE) 12/24/23 12/25/23 12/25/23 Range/Units 20:05 06:20 06:20 WBC 6.0 (3.98-10.04) x10^3/uL RBC 3.77 L (3.93-5.22) x10^6/uL Hgb 6.6 L* D (11.2-15.7) g/dL Hct 23.9 L (34.1-44.9) % MCV 63.4 L D (79.4-94.8) fL MCH 17.5 L (25.6-32.2) pg MCHC 27.6 L (32.2-35.5) g/dL RDW 26.5 H (11.7-14.4) % Plt Count 163 L (182-369) x10^3/uL Gran % 66.8 (34.0-71.1) % Immature Gran % (Auto) 0.3 (0.001-0.429) % Nucleat RBC Rel Count 0.0 (0.00-0.2) % Eos # (Auto) 0.21 (0.04-0.36) x10^3/uL Immature Gran # (Auto) 0.02 (0.001-0.031) x10^3u/L Absolute Lymphs (auto) 1.19 (1.18-3.74) x10^3/uL Absolute Monos (auto) 0.52 (0.24-0.86) x10^3/uL Absolute Nucleated RBC 0.00 (0.00-0.012) x10^3u/L Lymphocytes % 20.0 (19.3-51.7) % Monocytes % 8.7 (4.7-12.5) % Eosinophils % 3.5 (0.7-5.8) % Basophils % 0.7 (0.1-1.2) % Absolute Granulocytes 3.97 (1.56-6.13) x10^3/uL Basophils # 0.04 (0.01-0.08) x10^3/uL PT (9.4-12.5) SECONDS INR (0.8-3.0) Sodium (135-145) mmol/L Potassium (3.5-5.1) mmol/L Chloride (98-107) mmol/L Carbon Dioxide (22-30) mmol/L Anion Gap (5-15) MEQ/L BUN (7-17) mg/dL Creatinine (0.52-1.04) mg/dL Estimated GFR ML/MIN Glucose (74-106) mg/dL Calcium (8.4-10.2) mg/dL Magnesium (1.6-2.3) mg/dL Iron 27 L (37-170) ug/dL TIBC 451 (265-462) ug/dL Iron Saturation 6 L (20-39) % Ferritin (6.24-137) ng/mL Total Bilirubin (0.2-1.3) mg/dL AST (14-36) U/L ALT (0-35) U/L Alkaline Phosphatase (38-126) U/L Lactate Dehydrogenase (120-246) U/L Troponin I < 0.012 (0.000-0.033) ng/mL NT-Pro-B Natriuret Pep (<300) pg/mL Serum Total Protein (6.3-8.2) g/dL Albumin (3.5-5.0) g/dL Folic Acid (2.76 - >20) ng/mL Slides for Path Review YES ABO Group Rh Factor Antibody Screen (NEGATIVE) Crossmatch (COMPATIBLE) 12/25/23 Range/Units 06:20 WBC (3.98-10.04) x10^3/uL RBC (3.93-5.22) x10^6/uL Hgb (11.2-15.7) g/dL Hct (34.1-44.9) % MCV (79.4-94.8) fL MCH (25.6-32.2) pg MCHC (32.2-35.5) g/dL RDW (11.7-14.4) % Plt Count (182-369) x10^3/uL Gran % (34.0-71.1) % Immature Gran % (Auto) (0.001-0.429) % Nucleat RBC Rel Count (0.00-0.2) % Eos # (Auto) (0.04-0.36) x10^3/uL Immature Gran # (Auto) (0.001-0.031) x10^3u/L Absolute Lymphs (auto) (1.18-3.74) x10^3/uL Absolute Monos (auto) (0.24-0.86) x10^3/uL Absolute Nucleated RBC (0.00-0.012) x10^3u/L Lymphocytes % (19.3-51.7) % Monocytes % (4.7-12.5) % Eosinophils % (0.7-5.8) % Basophils % (0.1-1.2) % Absolute Granulocytes (1.56-6.13) x10^3/uL Basophils # (0.01-0.08) x10^3/uL PT (9.4-12.5) SECONDS INR (0.8-3.0) Sodium 139 (135-145) mmol/L Potassium 4.1 (3.5-5.1) mmol/L Chloride 106 (98-107) mmol/L Carbon Dioxide 24 (22-30) mmol/L Anion Gap 12.8 (5-15) MEQ/L BUN 14 (7-17) mg/dL Creatinine 0.65 (0.52-1.04) mg/dL Estimated GFR 114.1 ML/MIN Glucose 111 H (74-106) mg/dL Calcium 8.7 (8.4-10.2) mg/dL Magnesium (1.6-2.3) mg/dL Iron (37-170) ug/dL TIBC (265-462) ug/dL Iron Saturation (20-39) % Ferritin (6.24-137) ng/mL Total Bilirubin 0.60 (0.2-1.3) mg/dL AST 22 (14-36) U/L ALT 19 (0-35) U/L Alkaline Phosphatase 70 (38-126) U/L Lactate Dehydrogenase (120-246) U/L Troponin I (0.000-0.033) ng/mL NT-Pro-B Natriuret Pep 103 (<300) pg/mL Serum Total Protein 6.9 (6.3-8.2) g/dL Albumin 3.9 (3.5-5.0) g/dL Folic Acid (2.76 - >20) ng/mL Slides for Path Review ABO Group Rh Factor Antibody Screen (NEGATIVE) Crossmatch (COMPATIBLE) - Radiology Exams Ordered Rad Exams-Entire Visit: Radiology Procedures Category Date Time Status CHEST 1 VIEW (PORTABLE) Stat Exams 12/24/23 19:41 Completed - Procedures and Test Procedures and Tests throughout Hospitalization: Therapy Orders & Screens 12/24/23 21:42 EKG REPEAT IN AM Comment: 12/24/23 23:55 Respiratory Therapy Consult ONCE Comment: Reason For Exam: Diagnosis: Symptomatic anemia Smoking Cessation Education ONCE Comment: Diagnosis: Symptomatic anemia Smoking Status: Current every day smoker How long have you smoked: 4 months Have you smoked in the past 12 months: Yes Approximately how many cigarettes per day: 1 pack every 3 days Do you dip or chew tobacco: No Discharge Exam General Appearance: no apparent distress Neurologic Exam: alert, oriented x 3, cooperative Eye Exam: PERRL Ears, Nose, Throat Exam: normal ENT inspection Neck Exam: normal inspection Respiratory Exam: normal breath sounds, lungs clear Cardiovascular Exam: regular rate/rhythm, normal heart sounds Gastrointestinal/Abdomen Exam: soft, normal bowel sounds Pelvic Exam: deferred Rectal Exam: deferred Back Exam: normal inspection Extremity Exam: normal inspection Skin Exam: pale Final Diagnosis/Problem List - Final Discharge Diagnosis/Problem (1) Symptomatic anemia Current Visit: Yes Status: Resolved Code(s): D64.9 - ANEMIA, UNSPECIFIED (2) Thrombocytopenia Current Visit: Yes Status: Chronic (3) Smoker Current Visit: Yes Status: Chronic Code(s): F17.200 - NICOTINE DEPENDENCE, UNSPECIFIED, UNCOMPLICATED - Discharge Disposition: Home, Self-Care Condition: Stable Prescriptions: New Ferrous Sulfate 5.4 ml PO DAILY 30 Days #162 ml Additional Instructions: Call PCP for labwork Follow up with: SAL SHEFFIELD MD [Primary Care Provider] - 01/03/24 10:45 am NIKITA DAVIS MD [NON-STAFF PHY W/O PRIVILEGES] - 12/27/23 10:00 am
[2023-12-25] MEDS: FEOSOL 325 MG PO SCH (10:17)
[2023-12-25] MEDS: PROTONIX 40 MG IV IV SCH (10:18)
[2023-12-25 13:50] LABS: ALBUMIN 3.9 g/dL (3.5-5.0); ANION GAP 13.9 MEQ/L (5-15); BILIRUBIN,TOTAL 0.5 mg/dL (0.2-1.3); Calcium 8.6 mg/dL (8.4-10.2); Creatinine 1 0.76 mg/dL (0.52-1.04); EST GLOMERULAR FILTRATION RATE 101.5 ML/MIN; Total Protein 6.8 g/dL (6.3-8.2)
[2023-12-25 14:56] LABS: Absolute Neutrophil Ct (ANC) 3.87 x10^3/uL (1.56-6.13); BASOPHIL % 0.5 % (0.1-1.2); Basophil (Absolute #) 0.03 x10^3/uL (0.01-0.08); Eosinophil % 3.1 % (0.7-5.8); Eosinophil (Absolute #) 0.18 x10^3/uL (0.04-0.36); Hematocrit 25.9 % (34.1-44.9); Hemoglobin 7.2 g/dL (11.2-15.7); IMMATURE GRAN # 0.02 x10^3u/L (0.001-0.031); IMMATURE GRAN % 0.3 % (0.001-0.429); Lymphocyte (Absolute #) 1.21 x10^3/uL (1.18-3.74); Lymphocytes % 20.9 % (19.3-51.7); Mean Cell Volume 64.8 fL (79.4-94.8); Mean Corpuscular Hgb Concent. 27.8 g/dL (32.2-35.5); Monocyte (Absolute #) 0.48 x10^3/uL (0.24-0.86); Monocytes % 8.3 % (4.7-12.5); NUCLEATED RBC # 0.02 x10^3u/L (0.00-0.012); NUCLEATED RBC % 0.3 % (0.00-0.2); Neutrophil % 66.9 % (34.0-71.1); Platelet Count 165 x10^3/uL (182-369); White Blood Count 5.8 x10^3/uL (3.98-10.04)
[2023-12-25 15:30] VITALS: BP 132/73; PULSE 54; TEMP 97.7; O2SAT 99
[2023-12-25 15:31] LABS: Slide Review 1 YES
== END 2023-12-25 15:55 | disposition home or self-care (01) ==
LOC: ED 18:44 → MED SURG 21:36
PROVIDERS: ADMIT Internal Medicine Nephrology; ATTEND Internal Medicine Nephrology
DX: D64.9 Anemia, unspecified (principal); D69.6 Thrombocytopenia, unspecified; F17.200 Nicotine dependence, unspecified, uncomplicated
CPT/HCPCS: 36000; 36415; 36430; 71045; 80053; 82728; 82746; 83540; 83550; 83615; 83735; 83880; 84484; 85025; 85610; 86850; 86900; 86901; 86922; 93005; 93041; 94760; 99284; 99291; P9016; Q3014; G0378